=== PATIENT | female | born 1970 | race American Indian/Alaskan Native ===

== ENCOUNTER 2016-10-05 08:41 | Emergency (ER) | payer OTHER ==
[2016-10-05 08:54] VITALS: BP 125/90
[2016-10-05 09:39] LABS: Basophils % (Auto) 0.1 % (0.0-1.8); Eosinophils % (Auto) 0.4 % (0.0-4.3); Hematocrit 38.9 % (30.3-42.9); Hemoglobin 12.6 gm/dl (10.1-14.3); Mean Corpuscular HGB Conc 33 % (30-34); Mean Corpuscular Hemoglobin 28 pg (28-32); Mean Corpuscular Volume 87 fl (79-97); Platelet Count 184 K/mm3 (140-440); Red Blood Count 4.49 M/mm3 (3.65-5.03); Red Cell Distribution Width 13.4 % (13.2-15.2); White Blood Count 5.6 K/mm3 (4.5-11.0)
[2016-10-05 09:40] LABS: Anion Gap 19 mmol/L; Blood Urea Nitrogen 8 mg/dL (7-17); Carbon Dioxide 25 mmol/L (22-30); Chloride 99.3 mmol/L (98-107); Glucose 95 mg/dL (65-100); Potassium 3.9 mmol/L (3.6-5.0); Sodium 139 mmol/L (137-145)
[2016-10-05 09:41] LABS: Urine Drugs of Abuse Note Disclamer
[2016-10-05 10:08] LABS: Bilirubin,Urine NEG (Negative); Blood,Urine MOD (Negative); Ketones,Urine NEG (Negative); Leukocyte Esterase,Urine SM (Negative); Mucus,Urine FEW /HPF; Nitrite,Urine NEG (Negative); Protein,Urine <15 mg/dL mg/dL (Negative); Urobilinogen,Urine < 2.0 mg/dL (<2.0)
--- NOTE | 2016-10-05 11:14 | Emergency Department Report ---
ED Psych HPI - General Chief Complaint: Anxiety Stated Complaint: HALLUCINATING/PAIN IN R KNEE/ANXIETY Time Seen by Provider: 10/05/16 10:55 Source: patient, family, RN notes reviewed Mode of arrival: Ambulatory Limitations: No Limitations - History of Present Illness Initial Comments: 46-year-old female presents to the emergency Department with for mental health evaluation. Patient states that when she was previously in [place] she began hearing voices. She states she went to [employer] and was told to pray for the voices to go away. Patient states she has been praying consistently, but the voices still remained. After arriving to this country, the voices are persisting. She reports increased anxiety. She denies suicidal or homicidal ideations. There are no other complaints. -: Gradual, unknown Associated Psychiatric Symptoms: auditory hallucinations History of same: Yes Quality: constant Improves With: none Worsens With: none Associated Symptoms: denies other symptoms Treatments Prior to Arrival: none - Related Data Previous Rx's Medication Instructions Recorded Last Taken Type risperiDONE [RisperiDONE] 1 mg PO QHS #30 tablet 10/05/16 Unknown Rx Allergies Allergy/AdvReac Type Severity Reaction Status Date / Time No Known Allergies Allergy Unverified 10/05/16 08:47 ED Review of Systems ROS: Stated complaint: HALLUCINATING/PAIN IN R KNEE/ANXIETY Other details as noted in HPI Comment: All other systems reviewed and negative Psychiatric: anxiety, auditory hallucinations. denies: homicidal thoughts, suicidal thoughts ED Past Medical Hx - Past Medical History Previous Medical History?: Yes Hx Psychiatric Treatment: Yes (bipolar) Additional medical history: Right knee pain - Surgical History Past Surgical History?: No - Family History Family history: no significant - Social History Smoking Status: Never Smoker Substance Use Type: Non Opiate Pain, Other - Medications Home Medications: Home Medications Medication Instructions Recorded Confirmed Last Taken Type risperiDONE [RisperiDONE] 1 mg PO QHS #30 tablet 10/05/16 Unknown Rx ED Physical Exam - General Limitations: No Limitations General appearance: alert, in no apparent distress - Head Head exam: Present: atraumatic, normocephalic - Eye Eye exam: Present: normal appearance, PERRL, EOMI - ENT ENT exam: Present: normal exam, normal orophraynx, mucous membranes moist - Neck Neck exam: Present: normal inspection, full ROM. Absent: tenderness - Respiratory Respiratory exam: Present: normal lung sounds bilaterally, respiratory distress - Cardiovascular Cardiovascular Exam: Present: regular rate, normal rhythm, normal heart sounds - GI/Abdominal GI/Abdominal exam: Present: soft, normal bowel sounds. Absent: distended, tenderness - Extremities Exam Extremities exam: Present: normal inspection, full ROM. Absent: tenderness - Back Exam Back exam: Present: normal inspection, full ROM. Absent: tenderness - Neurological Exam Neurological exam: Present: alert, oriented X3. Absent: motor sensory deficit - Psychiatric Psychiatric exam: Present: anxious. Absent: agitated, manic, homicidal ideation , suicidal ideation - Skin Skin exam: Present: warm, dry, intact ED Course Vital Signs 10/05/16 08:47 Temperature 99.1 F Pulse Rate 83 Respiratory 18 Rate Blood Pressure 125/90 O2 Sat by Pulse 96 Oximetry ED Medical Decision Making - Lab Data Result diagrams: 10/05/16 09:06 10/05/16 09:06 - Medical Decision Making Laboratory results reviewed. Patient has been medically cleared. Patient has been evaluated by psychiatry and is being referred to [facility] for the partial hospitalization program. Patient will be discharged from the emergency department at this time to go to their facility for assessment. Per psychiatric recommendation, risperidone 1 mg by mouth at night will be prescribed. - Differential Diagnosis bipolar disorder, anxiety with psychotic features Critical care attestation.: If time is entered above; I have spent that time in minutes in the direct care of this critically ill patient, excluding procedure time. ED Disposition Clinical Impression: Bipolar disorder Qualifiers: Active/Remission status: currently active Current bipolar episode type: depressed Current episode severity: mild Qualified Code(s): F31.31 - Bipolar disorder, current episode depressed, mild Disposition: DC/TX PSY HOSP/PSY UNIT Is pt being admited?: No Condition: Stable Instructions: Bipolar Disorder (ED) Prescriptions: risperiDONE [RisperiDONE] 1 mg PO QHS #30 tablet Referrals: PRIMARY CARE, [Primary Care Provider] - 3-5 Days Time of Disposition: 12:01
--- NOTE | 2016-10-05 12:31 | Consultation ---
History of Present Illness - Reason for Consult Reason for consult: psychosis Medications and Allergies Allergies Allergy/AdvReac Type Severity Reaction Status Date / Time No Known Allergies Allergy Unverified 10/05/16 08:47 Home Medications Medication Instructions Recorded Confirmed Last Taken Type risperiDONE [RisperiDONE] 1 mg PO QHS #30 tablet 10/05/16 Unknown Rx Mental Status Exam - Vital signs Last Vital Signs Temp 99.1 F 10/05/16 08:47 Pulse 83 10/05/16 08:47 Resp 18 10/05/16 08:47 BP 125/90 10/05/16 08:47 Pulse Ox 96 10/05/16 08:47 Results Result Diagrams: 10/05/16 09:06 10/05/16 09:06 Abnormal lab results 10/05/16 10/05/16 Range/Units 09:06 09:18 Lymph # 0.9 L (1.2-5.4) K/mm3 Seg Neutrophils % 77.9 H (40.0-70.0) % Urine WBC (Auto) 44.0 H (0.0-6.0) /HPF All other labs normal. Assessment and Plan Assessment and plan: CHIEF COMPLAINT IN PATIENTS WORDS: "I do hear them talking" HISTORY OF PRESENT ILLNESS REQUIRING ADMISSION TO INPATIENT LEVEL OF CARE: (Describe the onset of Illness, Intensity of Symptoms, and Circumstances Leading to Admission) This is a 46 year-old domiciled female who with her due to persistent reports of paranoia. On my clinical evaluation, patient was hyperreligious and reported AH; however, she denied auditory hallucinations from God and other grandiose delusions. The noted that she recently moved from [facility], where she was being treated for Bipolar Disorder. Since her move to [place], [place] , she has been experiencing worsening symptoms of paranoia, anxiety and non- command AH. PSYCHIATRIC REVIEW OF SYSTEMS: Substance: Denies Depression: tired, lethargic Kathryn: some mild disorganization in her thoughts with perseveration noted Psychosis: +AH, no VH. No paranoia/grandiosity/erotomania; some disorganized thinking and hyperreligious thinking noted Anxiety/ OCD/ PTSD: reports attacks of worry during the middle of the night Suicidality: denies current SI, no plan, no HI, no previous SA Other Self-Injurious Behavior: none currently, no SIB noted recently Violent/ Aggressive Behavior: no aggression noted CURRENT MEDICATIONS: ( Psychiatric and Non-psychiatric ) None ALLERGIES: NKDA PAST PSYCHIATRIC HISTORY: ( Prior Treatment, Precipitating Factors, Diagnosis, and Course of Treatment ) Inpatient: Did not report Outpatient: none Prior Suicide Attempts: Denies Prior Self-Injurious Behaviors: Denies PAST PSYCHIATRIC MEDICATION TRIALS: Zyprexa Haloperidol (oral and deconate) MEDICAL HISTORY: (Chronic and Acute Illnesses, Current Medical Treatment, Recent Hospitalizations) Denies HISTORY OF TRAUMA/ABUSE: Patient denies on clinical examination DRUG / ALCOHOL ABUSE HISTORY: Denies Detoxification / Withdrawal: SOCIAL HISTORY: (Educational Level, Employment, Support System, Interpersonal Relationships) Recently immigrated from [facility], 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 FAMILY HISTORY: Psychiatric/Substance Abuse Unknown MENTAL STATUS EXAM: General Appearance: casually, no acute distress Sensorium/Consciousness: alert and responding to external stimuli Eye Contact: fair Attitude / Behavior: cooperative, but guarded Psychomotor & Musculoskeletal Activity: WNL Mood: fine Affect: constricted Speech / Language: normal rate/rhythm Thought Processes: organized, logical, linear Thought Content: no SI, no HI, paranoia Perception: +AH, no VH Orientation: person, place, time and situation Concentration/Attention WORLD backwards: DLROW Memory Immediate Digit Span (5-6-7-9-3-1-5): did not test Memory Recent (Objects: Lamp, Umbrella, and Telephone) Patient Response: did not test Memory Remote (Name as many presidents as you can starting with current one and going backwards) Patient Response: did not test Judgment What would you do if you smelled smoke in a crowded movie theater?: impulsive Insight: present Intelligence Vocabulary, general fund of knowledge, educational level : Average Capacity of ADLs: Independent STRENGTHS: Able to communicate desire to seek mental health services PSYCHOSOCIAL AND ENVIRONMENTAL STRESSORS: Recent immigration ADMITTING DIAGNOSES Psychiatric: History of Bipolar Disorder, with current mixed episode with psychotic features Medical: n/a INITIAL PLAN OF CARE AND TREATMENT GOALS: - start Risperidone 1 mg po qhs - refer to Partial Hospitalization Program - return to ER if she developes EPS or symptoms of psychosis worsen, call crisis line or 911 for emergent issues
== END 2016-10-05 12:12 ==
LOC: ED 08:41
DX: F31.31 Bipolar disorder, current episode depressed, mild (principal)
CPT/HCPCS: 36415; 80048; 80307; 81001; 85025; 99284; G0480; 80320

== ENCOUNTER 2016-12-20 05:45 | Emergency (ER) | payer OTHER ==
[2016-12-20 07:02] LABS: Basophils % (Auto) 0.1 % (0.0-1.8); Hematocrit 33.9 % (30.3-42.9); Hemoglobin 11.3 gm/dl (10.1-14.3); Mean Corpuscular HGB Conc 33 % (30-34); Mean Corpuscular Hemoglobin 29 pg (28-32); Mean Corpuscular Volume 86 fl (79-97); Platelet Count 228 K/mm3 (140-440); Red Blood Count 3.96 M/mm3 (3.65-5.03); Red Cell Distribution Width 14.4 % (13.2-15.2); White Blood Count 10.8 K/mm3 (4.5-11.0)
[2016-12-20 07:16] LABS: Alanine Aminotransferase 30 units/L (7-56); Albumin 3.8 g/dL (3.9-5); Alkaline Phosphatase 88 units/L (35-129); Anion Gap 20 mmol/L; BUN/Creatinine Ratio 5.55; Blood Urea Nitrogen 5 mg/dL (7-17); Calcium 8.8 mg/dL (8.4-10.2); Carbon Dioxide 23 mmol/L (22-30); Chloride 96.5 mmol/L (98-107); Glucose 161 mg/dL (65-100); Potassium 3.4 mmol/L (3.6-5.0); Sodium 136 mmol/L (137-145); Total Protein 7.7 g/dL (6.3-8.2)
[2016-12-20 07:59] LABS: Bacteria,Urine 1+ /HPF (Negative); Bilirubin,Urine NEG (Negative); Blood,Urine MOD (Negative); Ketones,Urine TR mg/dL (Negative); Leukocyte Esterase,Urine MOD (Negative); Nitrite,Urine POS (Negative)
[2016-12-20] MEDS ORDERED: TORADOL IM ONE (11:54)
[2016-12-20] MEDS ORDERED: TYLENOL PO ONE (11:54)
[2016-12-20] MEDS ORDERED: MACROBID PO ONE (11:54)
[2016-12-20] MEDS ORDERED: ULTRAM PO ONE (11:54)
[2016-12-20] MEDS ORDERED: ZOFRAN ODT PO ONE (12:01)
[2016-12-20] MEDS ORDERED: K-DUR PO ONE (12:01)
--- NOTE | 2016-12-20 12:03 | Emergency Department Report ---
ED Abdominal Pain HPI - General Chief Complaint: Abdominal Pain Stated Complaint: HEADACHE/ABD PAIN/TIRENESS/POSS FEVER Time Seen by Provider: 12/20/16 11:48 Source: patient Mode of arrival: Ambulatory Limitations: No Limitations - History of Present Illness Initial Comments: 46 year old female with past medical history of bipolar disease presents to the hospital complains of suprapubic abdominal pain and intermittent fever for last 5 days. Pain is reported 4/10 in intensity, intermittent, achy, or palpation. No alleviating factors. Positive hot feeling and chills. Positive nausea vomiting intermittently. Patient saw her RN CASE MGR doctor 4 days ago and had a pelvic exam but did not have the symptoms at the time. Patient denies dysuria or vaginal discharge. - Related Data Previous Rx's Medication Instructions Recorded Last Taken Type risperiDONE [RisperiDONE] 1 mg PO QHS #30 tablet 10/05/16 Unknown Rx Ibuprofen [Motrin] 800 mg PO Q8HR PRN #30 tablet 12/20/16 Unknown Rx Nitrofurantoin Noble/M-Cryst 100 mg PO Q12HR #14 capsule 12/20/16 Unknown Rx [Macrobid CAP] Ondansetron [Zofran Odt] 4 mg PO Q8HR PRN #20 tab.rapdis 12/20/16 Unknown Rx traMADol [Ultram 50 MG tab] 50 mg PO Q6HR PRN #20 tablet 12/20/16 Unknown Rx Allergies Allergy/AdvReac Type Severity Reaction Status Date / Time No Known Allergies Allergy Unverified 10/05/16 08:47 ED Review of Systems ROS: Stated complaint: HEADACHE/ABD PAIN/TIRENESS/POSS FEVER Other details as noted in HPI Comment: All other systems reviewed and negative Other: Constitutional: as per hpi Eyes: No eye pain visual changes or discharge ENT: No ear pain or throat pain Neck: Denies pain Respiratory: Denies cough wheezing shortness of breath Cardiovascular: Denies chest pain, palpitations, syncope GI: As per HPI : Denies dysuria Musculoskeletal: Denies back pain, joint swelling Skin: Denies rash, lesions, erythema Neurologic: Denies headache, numbness, weakness Psychiatric: Denies suicidal ideation, hallucinations ED Past Medical Hx - Past Medical History Previous Medical History?: Yes Hx Psychiatric Treatment: Yes (bipolar) Additional medical history: Right knee pain - Surgical History Past Surgical History?: No - Social History Smoking Status: Never Smoker Substance Use Type: None - Medications Home Medications: Home Medications Medication Instructions Recorded Confirmed Last Taken Type risperiDONE [RisperiDONE] 1 mg PO QHS #30 tablet 10/05/16 12/20/16 Unknown Rx Ibuprofen [Motrin] 800 mg PO Q8HR PRN #30 tablet 12/20/16 Unknown Rx Nitrofurantoin Noble/M-Cryst 100 mg PO Q12HR #14 capsule 12/20/16 Unknown Rx [Macrobid CAP] Ondansetron [Zofran Odt] 4 mg PO Q8HR PRN #20 tab.rapdis 12/20/16 Unknown Rx traMADol [Ultram 50 MG tab] 50 mg PO Q6HR PRN #20 tablet 12/20/16 Unknown Rx ED Physical Exam - General Limitations: No Limitations - Other Other exam information: General: No limitations, patient is alert in no acute distress Head exam: Atraumatic, normocephalic Eyes exam: Normal appearance, pupils equal reactive to light, extraocular movements intact ENT: Moist mucous membrane, normal oropharynx Neck exam: Normal inspection, full range of motion, no meningismus nontender Respiratory exam: Clear to auscultation bilateral, no wheezes, rales, crackles Cardiovascular: Tachycardia regular rhythm Abdomen: Soft, nondistended, suprapubic tenderness, with normal bowel sounds, no rebound, or guarding Extremity: Full range of motion normal inspection no deformity Back: Normal Inspection, full range of motion, no tenderness Neurologic: Alert, oriented x3, cranial nerves intact, no motor or sensory deficit Psychiatric: normal affect, normal mood Skin: Warm, dry, intact ED Course Vital Signs 12/20/16 12/20/16 12/20/16 05:56 11:43 12:34 Temperature 99.8 F H 101.5 F H Pulse Rate 79 122 H Respiratory 24 18 18 Rate Blood Pressure 104/68 Blood Pressure 115/70 [Left] O2 Sat by Pulse 97 100 100 Oximetry 12/20/16 12/20/16 12/20/16 12:54 14:07 14:53 Temperature 98.8 F 98.8 F Pulse Rate 105 H 98 H 96 H Respiratory 18 18 Rate Blood Pressure Blood Pressure 111/75 100/53 [Left] O2 Sat by Pulse 100 100 Oximetry - Reevaluation(s) Reevaluation #1: 07/29/17 12:03 Medication order: Zofran, Tylenol, tramadol, Toradol, Macrobid, and by mouth potassium 12/20/16 15:17 Patient's heart rate remained 115 after receiving the above medications and reduction in temperature. 1 L normal saline completed and patient heart rate is now in the 80s and she states she is feeling much better ED Medical Decision Making - Lab Data Result diagrams: 12/20/16 06:43 12/20/16 06:43 Lab Results 12/20/16 12/20/16 12/20/16 Range/Units 06:43 06:43 06:43 WBC 10.8 (4.5-11.0) K/mm3 RBC 3.96 (3.65-5.03) M/mm3 Hgb 11.3 (10.1-14.3) gm/dl Hct 33.9 (30.3-42.9) % MCV 86 (79-97) fl MCH 29 (28-32) pg MCHC 33 (30-34) % RDW 14.4 (13.2-15.2) % Plt Count 228 (140-440) K/mm3 Lymph % (Auto) 6.0 L (13.4-35.0) % Noble % (Auto) 11.7 H (0.0-7.3) % Eos % (Auto) 0.0 (0.0-4.3) % Baso % (Auto) 0.1 (0.0-1.8) % Lymph # 0.6 L (1.2-5.4) K/mm3 Noble # 1.3 H (0.0-0.8) K/mm3 Eos # 0.0 (0.0-0.4) K/mm3 Baso # 0.0 (0.0-0.1) K/mm3 Seg Neutrophils % 82.2 H (40.0-70.0) % Seg Neutrophils # 8.9 H (1.8-7.7) K/mm3 Sodium 136 L (137-145) mmol/L Potassium 3.4 L (3.6-5.0) mmol/L Chloride 96.5 L (98-107) mmol/L Carbon Dioxide 23 (22-30) mmol/L Anion Gap 20 mmol/L BUN 5 L (7-17) mg/dL Creatinine 0.9 (0.7-1.2) mg/dL Estimated GFR > 60 ml/min BUN/Creatinine Ratio 5.55 % Glucose 161 H (65-100) mg/dL Calcium 8.8 (8.4-10.2) mg/dL Total Bilirubin 0.90 (0.1-1.2) mg/dL AST 27 (5-40) units/L ALT 30 (7-56) units/L Alkaline Phosphatase 88 (35-129) units/L Total Protein 7.7 (6.3-8.2) g/dL Albumin 3.8 L (3.9-5) g/dL Albumin/Globulin Ratio 1.0 % HCG, Qual Negative (Negative) Urine Color (Yellow) Urine Turbidity (Clear) Urine pH (5.0-7.0) Ur Specific [place] (1.003-1.030) Urine Protein (Negative) mg/dL Urine Glucose (UA) (Negative) mg/dL Urine Ketones (Negative) mg/dL Urine Blood (Negative) Urine Nitrite (Negative) Urine Bilirubin (Negative) Urine Urobilinogen (<2.0) mg/dL Ur Leukocyte Esterase (Negative) Urine WBC (Auto) (0.0-6.0) /HPF Urine RBC (Auto) (0.0-6.0) /HPF U Epithel Cells (Auto) (0-13.0) /HPF Urine Bacteria (Auto) (Negative) /HPF // Range/Units 07:43 WBC (4.5-11.0) K/mm3 RBC (3.65-5.03) M/mm3 Hgb (10.1-14.3) gm/dl Hct (30.3-42.9) % MCV (79-97) fl MCH (28-32) pg MCHC (30-34) % RDW (13.2-15.2) % Plt Count (140-440) K/mm3 Lymph % (Auto) (13.4-35.0) % Noble % (Auto) (0.0-7.3) % Eos % (Auto) (0.0-4.3) % Baso % (Auto) (0.0-1.8) % Lymph # (1.2-5.4) K/mm3 Noble # (0.0-0.8) K/mm3 Eos # (0.0-0.4) K/mm3 Baso # (0.0-0.1) K/mm3 Seg Neutrophils % (40.0-70.0) % Seg Neutrophils # (1.8-7.7) K/mm3 Sodium (137-145) mmol/L Potassium (3.6-5.0) mmol/L Chloride (98-107) mmol/L Carbon Dioxide (22-30) mmol/L Anion Gap mmol/L BUN (7-17) mg/dL Creatinine (0.7-1.2) mg/dL Estimated GFR ml/min BUN/Creatinine Ratio % Glucose (65-100) mg/dL Calcium (8.4-10.2) mg/dL Total Bilirubin (0.1-1.2) mg/dL AST (5-40) units/L ALT (7-56) units/L Alkaline Phosphatase (35-129) units/L Total Protein (6.3-8.2) g/dL Albumin (3.9-5) g/dL Albumin/Globulin Ratio % HCG, Qual (Negative) Urine Color Yellow (Yellow) Urine Turbidity Clear (Clear) Urine pH 6.0 (5.0-7.0) Ur Specific [place] 1.005 (1.003-1.030) Urine Protein 100 mg/dl (Negative) mg/dL Urine Glucose (UA) Neg (Negative) mg/dL Urine Ketones Tr (Negative) mg/dL Urine Blood Mod (Negative) Urine Nitrite Pos (Negative) Urine Bilirubin Neg (Negative) Urine Urobilinogen 4.0 (<2.0) mg/dL Ur Leukocyte Esterase Mod (Negative) Urine WBC (Auto) 18.0 H (0.0-6.0) /HPF Urine RBC (Auto) 4.0 (0.0-6.0) /HPF U Epithel Cells (Auto) < 1.0 (0-13.0) /HPF Urine Bacteria (Auto) 1+ (Negative) /HPF - Medical Decision Making Patient is nontoxic appearing. Able tolerate by mouth. Heart rate is trending downward with heart rate reduction. Patient feels better after medications. We 'll be discharged with treatment for UTI. Urine culture ordered - Differential Diagnosis vaginitis, cervicitis, UTI, appendicitis, diverticulitis Critical Care Time: No Critical care attestation.: If time is entered above; I have spent that time in minutes in the direct care of this critically ill patient, excluding procedure time. ED Disposition Clinical Impression: UTI (urinary tract infection), Hypokalemia Disposition: TO HOME OR SELFCARE Is pt being admited?: No Does the pt Need Aspirin: No Condition: Stable Instructions: Urinary Tract Infection in Women (ED), Hypokalemia (ED) Additional Instructions: Take the medication as prescribed. You may also take Tylenol as needed for fever. Please return if symptoms worsen. Follow-up with your doctor within 2- 3 days. Eat 1-2 bananas a day to help increase your potassium level. Prescriptions: Ibuprofen [Motrin] 800 mg PO Q8HR PRN #30 tablet PRN Reason: Pain Nitrofurantoin Noble/M-Cryst [Macrobid CAP] 100 mg PO Q12HR #14 capsule Ondansetron [Zofran Odt] 4 mg PO Q8HR PRN #20 tab.rapdis PRN Reason: Nausea And Vomiting traMADol [Ultram 50 MG tab] 50 mg PO Q6HR PRN #20 tablet PRN Reason: Pain Referrals: PRIMARY CARE,MD [Primary Care Provider] - 2-3 Days Time of Disposition: 15:19
[2016-12-20] MEDS ORDERED: NACL 0.9% 1000 ML 1,000 ML IV ONE (13:07)
[2016-12-20 14:54] VITALS: BP 100/53
== END 2016-12-20 15:36 | disposition home or self-care (01) ==
LOC: ED 05:45
DX: N39.0 Urinary tract infection, site not specified (principal); E87.6 Hypokalemia; F31.9 Bipolar disorder, unspecified
CPT/HCPCS: 36415; 80053; 81001; 84703; 85025; 87076; 87086; 87186; 96360; 96372; 99283; J1885; J7030; Q0162